=== PATIENT | male | born 1975 | race Caucasian/White ===

== ENCOUNTER 2016-12-20 03:20 | Emergency (ER) | payer SELFPAY ==
[~2016-12-20] VITALS: Ht 180.3 cm; Wt 140.0 kg
[~2016-12-20 03:20] MED LIST: BACTRIM1 TAB OR; CLINDAMYCIN150 MG OR; LORTAB 10 OR; NO MEDS
[2016-12-20] MEDS ORDERED: NEXIUM20 MG PO (03:34)
[2016-12-20] MEDS ORDERED: METFORMIN500 MG PO (03:35)
[2016-12-20 04:03] LABS: HEMATOCRIT 46.6 % (39.0-50.0); IMMATURE GRANULOCYTES 0.5 % (0.0-1.0); MEAN CELL VOLUME 87.8 fL CALC (80.0-100.0); MEAN CORPUSCULAR HGB 28.2 pG CALC (26.0-32.0); MEAN CORPUSCULAR HGB CONC 32.2 g/L CALC (32.0-36.0); NEUT# 6.27 thou/uL (1.82-7.42); RED BLOOD COUNT 5.31 mill/uL (4.70-6.10); RED CELL DISTRI WIDTH 15.4 % (11.5-15.5)
[2016-12-20 04:20] LABS: ALBUMIN 3.9 g/dL (3.2-5.0); ALKALINE PHOSPHATASE 112 u/l (38-126); AMYLASE 66 u/l (30-110); ANION GAP 14 (6-22 (CALC)); BILIRUBIN, TOTAL 0.5 mg/dL (0.0-1.4); BUN 12 mg/dL (9-20); BUN/CREATININE RATIO 12 (12-20 (CALC)); CALCIUM 8.6 mg/dL (8.4-10.2); CARBON DIOXIDE 28 mmol/l (22-30); CHLORIDE 104 mmol/l (95-108); GFR > 60 ML/MIN (>=60 (CALC)); GFR FOR AFR.AMER. > 60 ML/MIN (>=60 (CALC)); GLUCOSE 189 mg/dL (75-110); LIPASE 52 u/l (23-300); POTASSIUM 4.2 mmol/l (3.5-5.1); SGOT/AST 22 u/l (17-59); SGPT/ALT 33 u/l (21-72); SODIUM 142 mmol/l (137-146); TOTAL PROTEIN 7.2 g/dL (6.3-8.2)
[2016-12-20 04:31] LABS: MYOGLOBIN 46 ng/mL (0 - 121)
[2016-12-20 06:06] LABS: URINE BILIRUBIN - DIPSTICK NEGATIVE (NEGATIVE); URINE BLOOD DIPSTICK NEGATIVE (NEGATIVE); URINE COLOR YELLOW; URINE GLUCOSE - DIPSTICK NEGATIVE (NEGATIVE); URINE KETONE NEGATIVE (NEGATIVE); URINE LEUK ESTERASE NEGATIVE (NEGATIVE); URINE NITRITE - DIPSTICK NEGATIVE (Negative); URINE PROTEIN - DIPSTICK NEGATIVE (NEG-TRACE); URINE SPECIFIC GRAVITY 1.015; URINE UROBILINOGEN - DIPSTICK 0.2 E.U./dL (0.2)
[2016-12-20 06:10] LABS: URINE CLARITY CLEAR
[2016-12-20] MEDS ORDERED: CEPHALEXIN500 MG PO (06:28)
[2016-12-20] MEDS ORDERED: BACTRIM DS1 TAB PO (06:28)
[2016-12-20] MEDS ORDERED: LORTAB 1010 MG PO (06:28)
[2016-12-20 07:08] VITALS: BP 157/90
== END 2016-12-20 07:08 | disposition home or self-care (01) | DRG 921 ==
LOC: ED 03:20
PROVIDERS: Emergency Medicine
DX: T81.89XA Other complications of procedures, not elsewhere classified, initial encounter (principal); F17.210 Nicotine dependence, cigarettes, uncomplicated; R10.33 Periumbilical pain; R10.13 Epigastric pain; R11.0 Nausea; Y83.8 Other surgical procedures as the cause of abnormal reaction of the patient, or of later complication, without mention of misadventure at the time of the procedure
CPT/HCPCS: Q9967

== ENCOUNTER 2018-01-28 11:34 | Emergency (ER) | payer SELFPAY ==
[~2018-01-28] VITALS: Ht 180.3 cm; Wt 160.0 kg
[~2018-01-28 11:34] MED LIST changes: +BACTRIM DS1 TAB PO; +CEPHALEXIN500 MG PO; +CLINDAMYCIN300 M1 PO; +LORTAB 1010 MG PO; +METFORMIN500 MG PO; +MUPIROCIN21 TOP; +NEXIUM20 MG PO
[2018-01-28] MEDS ORDERED: PENICILLN VK500 MG PO (12:10)
[2018-01-28] MEDS ORDERED: MOTRIN800 MG PO (12:10)
[2018-01-28] MEDS ORDERED: TRAMADOL HYDROC50 MG PO (12:10)
[2018-01-28 12:32] VITALS: BP 157/95
== END 2018-01-28 12:32 | disposition home or self-care (01) | DRG 159 ==
LOC: ED 11:34
DX: K08.89 Other specified disorders of teeth and supporting structures (principal); S02.5XXA Fracture of tooth (traumatic), initial encounter for closed fracture; K02.9 Dental caries, unspecified

== ENCOUNTER 2018-05-17 11:24 | Emergency (ER) | payer SELFPAY ==
[~2018-05-17] VITALS: Ht 180.3 cm; Wt 147.7 kg
[~2018-05-17 11:24] MED LIST changes: +MOTRIN800 MG PO; +PENICILLN VK500 MG PO; +TRAMADOL HYDROC50 MG PO
[2018-05-17] MEDS ORDERED: BACTRIM DS1 TAB PO (13:11)
[2018-05-17] MEDS ORDERED: CEPHALEXIN500 M1 PO (13:11)
[2018-05-17 13:32] VITALS: BP 137/83
== END 2018-05-17 13:37 | disposition home or self-care (01) | DRG 603 ==
LOC: ED 11:24
DX: L03.311 Cellulitis of abdominal wall (principal); E11.9 Type 2 diabetes mellitus without complications; I10 Essential (primary) hypertension; F17.210 Nicotine dependence, cigarettes, uncomplicated

== ENCOUNTER 2018-06-26 12:48 | Emergency (ER) | payer SELFPAY ==
[~2018-06-26] VITALS: Ht 180.3 cm; Wt 144.0 kg
[~2018-06-26 12:48] MED LIST changes: +CEPHALEXIN500 M1 PO
[2018-06-26 14:23] LABS: HEMATOCRIT 50.3 % (39.0-50.0); HEMOGLOBIN 16.6 g/dl (14.0-18.0); IMMATURE GRANULOCYTES 0.6 % (0.0-5.0); MEAN CELL VOLUME 86.4 fL CALC (80.0-100.0); MEAN CORPUSCULAR HGB 28.5 pG CALC (26.0-32.0); NEUT# 11.1 thou/uL (1.82-7.42); RED BLOOD COUNT 5.82 mill/uL (4.70-6.10); RED CELL DISTRI WIDTH 14.7 % (11.5-15.5)
[2018-06-26 14:53] LABS: ALBUMIN 4.4 g/dL (3.2-5.0); ALKALINE PHOSPHATASE 140 u/l (38-126); ANION GAP 15 (6-22 (CALC)); BILIRUBIN, TOTAL 0.6 mg/dL (0.0-1.4); BUN 9 mg/dL (9-20); BUN/CREATININE RATIO 15 (12-20 (CALC)); CARBON DIOXIDE 27 mmol/l (22-30); CHLORIDE 99 mmol/l (95-108); CREATININE 0.6 mg/dL (0.7-1.3); GFR > 60 ML/MIN (>=60 (CALC)); GFR FOR AFR.AMER. > 60 ML/MIN (>=60 (CALC)); POTASSIUM 4.1 mmol/l (3.5-5.1); SGOT/AST 22 u/l (17-59); SODIUM 137 mmol/l (137-146); TOTAL PROTEIN 7.4 g/dL (6.3-8.2)
[2018-06-26] MEDS ORDERED: MOTRIN400 MG PO (16:01)
[2018-06-26] MEDS ORDERED: CLINDAMYCIN300 M1 PO (16:01)
[2018-06-26 16:19] VITALS: BP 145/81
== END 2018-06-26 16:19 | disposition home or self-care (01) | DRG 603 ==
LOC: ED 12:48
PROVIDERS: Family Medicine
DX: L02.818 Cutaneous abscess of other sites (principal); E11.9 Type 2 diabetes mellitus without complications; I10 Essential (primary) hypertension; F17.210 Nicotine dependence, cigarettes, uncomplicated
CPT/HCPCS: Q9967

== ENCOUNTER 2022-02-19 07:37 | Emergency (ER) | payer OTHER ==
[~2022-02-19] VITALS: Ht 180.3 cm; Wt 150.0 kg
[~2022-02-19 07:37] MED LIST changes: +MOTRIN400 MG PO
[2022-02-19] MEDS ORDERED: CEPHALEXIN500 MG PO (09:33)
[2022-02-19 09:44] VITALS: BP 153/89
== END 2022-02-19 09:58 | disposition home or self-care (01) | DRG 556 ==
LOC: ED 07:37
DX: M25.561 Pain in right knee (principal)